=== PATIENT | male | born 1945 | race Caucasian/White ===

== ENCOUNTER 2019-05-18 09:03 | Inpatient (IN) | payer BC, MEDICARE, OTHER ==
[~2019-05-18] VITALS: Ht 177.8 cm; Wt 112.7 kg
--- NOTE | 2019-05-18 09:23 | NUR ---
IS AT THE BEDSIDE FOR CONSULT. THIS PT WAS TRANSFERRED FROM THE .A. FOR ADMISSION FOR A UTI.
[2019-05-18] MEDS ORDERED: SODIUM CHLORIDE 0.9% 1,000ML IVBOLUS ONE (09:30)
[2019-05-18] MEDS ORDERED: BUPR100T11 PO ×2 (09:56)
[2019-05-18] MEDS ORDERED: BUSP10TA PO ×4 (09:56→10:16)
--- NOTE | 2019-05-18 09:58 | NUR ---
HOSPITALIST IS AT THE BEDSIDE TO CONSULT. PHLEBOTOMY IS AT THE BEDSIDE FOR BLOOD SAMPLING
[2019-05-18] MEDS ORDERED: FINA5TAB4 PO (10:18)
[2019-05-18] MEDS ORDERED: METO25TA2 PO (10:19)
[2019-05-18 10:20] LABS: BASOPHILS # (AUTO) 0.03 x10^3/uL (0-0.1); BASOPHILS % (AUTO) 0 % (0-1); EOSINOPHILS # (AUTO) 0.01 x10^3/uL (0-0.4); EOSINOPHILS % (AUTO) 0 % (1-7); LYMPHOCYTES # (AUTO) 0.62 x10^3/uL (1-3.4); LYMPHOCYTES % (AUTO) 6 % (22-44); MD NO; MEAN CORPUSCULAR HEMOGLOBIN 27.4 pg (27.5-34.5); MEAN CORPUSCULAR HGB CONC 31.6 g/dL (33.2-36.2); MEAN CORPUSCULAR VOLUME 86.9 fL (81-97); MEAN PLATELET VOLUME 7.6 fL (7.4-10.4); MONOCYTES # (AUTO) 0.66 x10^3/uL (0.2-0.8); MONOCYTES % (AUTO) 7 % (2-9); NEUTROPHILS # (AUTO) 8.59 x10^3/uL (1.8-6.8); NEUTROPHILS % (AUTO) 87 % (42-75); PLATELET COUNT 224 x10^3/uL (130-400); RED CELL DISTRIBUTION WIDTH 14.3 % (9.4-14.8)
[2019-05-18] MEDS ORDERED: TAMS-11 PO (10:20)
[2019-05-18] MEDS ORDERED: SIMV80TA18 PO (10:21)
[2019-05-18] MEDS ORDERED: DORZ10DR26 EACHEYE (10:23)
[2019-05-18] MEDS ORDERED: TIMO5DRO33 EACHEYE (10:24)
[2019-05-18] MEDS ORDERED: MELA10CA PO (10:26)
[2019-05-18] MEDS ORDERED: LATA7.5D EACHEYE (10:26)
[2019-05-18] MEDS ORDERED: CHOL10003 PO (10:27)
[2019-05-18] MEDS ORDERED: TRAZ50TA66 PO (10:27)
[2019-05-18] MEDS ORDERED: ASPI-496 PO (10:28)
[2019-05-18] MEDS ORDERED: NAPR-685 PO (10:29)
[2019-05-18] MEDS ORDERED: GABA-827 PO (10:30)
[2019-05-18] MEDS ORDERED: CEFTRIAXONE PMX 1GM/50ML 50 ML IV SCH (10:30)
--- NOTE | 2019-05-18 10:31 | NUR ---
VERBAL SBAR EXCHANGED Yodit GALEAS ([facility]) ON THE FLOOR FOR ADMISSION. WE WILL BEGIN TO PREPARE FOR TRANSPORT AT THIS TIME.
[2019-05-18 10:35] LABS: ALBUMIN 3.1 g/dL (3.4-5.0); ANION GAP 7 mmol/L (5-15); CALCIUM 7.9 mg/dL (8.5-10.1); CHLORIDE 112 mmol/L (98-107); CREATININE 1.03 mg/dL (0.7-1.3)
--- NOTE | 2019-05-18 10:51 | NUR ---
SPOKE W/ DAYSI FROM [facility] WHO DENIES TRANSFER AT THIS TIME.
[2019-05-18 11:01] VITALS: BP 103/67
[2019-05-18] MEDS ORDERED: ACETAMINOPHEN 325 MG TABLET PO PRN (11:30)
[2019-05-18 11:36] LABS: MICROSCOPIC AUTO
[2019-05-18 11:37] LABS: CULTURE INDICATED? YES
[2019-05-18] MEDS: SODIUM CHLORIDE 0.9% 1,000 ML IV SCH ×2 (12:16→18:29)
[2019-05-18] MEDS: HEPARIN 5,000 UNITS/ML, 1ML SQ SCH ×2 (12:26→22:00)
[2019-05-18] MEDS ORDERED: BUSPIRONE 5 MG TABLET ONE (12:50)
[2019-05-18] MEDS: BUPROPION 100 MG TABLET PO SCH (12:52)
[2019-05-18] MEDS: BUSPIRONE 10 MG TABLET PO SCH (12:52)
[2019-05-18 15:50] VITALS: BP 148/86
[2019-05-18 19:06] VITALS: BP 120/72
[2019-05-18] MEDS ORDERED: DORZOLAMIDE OPHTH 2%, 10ML EACHEYE SCH (21:00)
[2019-05-18] MEDS: LATANOPROST OPHTH 0.005%, 2.5ML HOMEOPHTH SCH (21:00)
[2019-05-18] MEDS ORDERED: TIMOLOL OPHTH 0.5%, 5ML EACHEYE SCH (21:00)
[2019-05-18 21:45] VITALS: BP_SYST 127; BP_SYST 131; BP_SYST 143; BP_DIAS 61; BP_DIAS 75; BP_DIAS 78
[2019-05-18] MEDS: GABAPENTIN 400 MG CAPSULE PO SCH (21:59)
[2019-05-18] MEDS: FINASTERIDE 5 MG TABLET PO SCH (21:59)
[2019-05-18] MEDS: CHOLECALCIFEROL 1,000 UNIT TABLET PO SCH (21:59)
[2019-05-18] MEDS: ATORVASTATIN 40 MG TABLET PO SCH (21:59)
[2019-05-18] MEDS: ASPIRIN 81 MG TABLET EC PO SCH (21:59)
[2019-05-18] MEDS: METOPROLOL SUCCINATE 25 MG TAB.ER.24H PO SCH (22:00)
[2019-05-18] MEDS: TRAZODONE 50MG TABLET PO SCH (22:00)
[2019-05-18] MEDS: TAMSULOSIN 0.4 MG CAP.ER.24H PO SCH (22:00)
[2019-05-19] MEDS: SODIUM CHLORIDE 0.9% 1,000 ML IV SCH ×4 (00:01→21:37)
[2019-05-19 02:03] VITALS: BP 121/74
[2019-05-19] MEDS: HEPARIN 5,000 UNITS/ML, 1ML SQ SCH ×3 (05:01→21:35)
[2019-05-19] MEDS: CEFTRIAXONE PMX 1GM/50ML 50 ML IV SCH (05:01)
[2019-05-19 06:06] LABS: BASOPHILS # (AUTO) 0.02 x10^3/uL (0-0.1); BASOPHILS % (AUTO) 0 % (0-1); EOSINOPHILS # (AUTO) 0.05 x10^3/uL (0-0.4); EOSINOPHILS % (AUTO) 1 % (1-7); LYMPHOCYTES # (AUTO) 1.09 x10^3/uL (1-3.4); LYMPHOCYTES % (AUTO) 17 % (22-44); MD NO; MEAN CORPUSCULAR HEMOGLOBIN 28.2 pg (27.5-34.5); MEAN CORPUSCULAR VOLUME 88.1 fL (81-97); MONOCYTES # (AUTO) 0.52 x10^3/uL (0.2-0.8); MONOCYTES % (AUTO) 8 % (2-9); NEUTROPHILS # (AUTO) 4.75 x10^3/uL (1.8-6.8); NEUTROPHILS % (AUTO) 74 % (42-75); PLATELET COUNT 179 x10^3/uL (130-400); RED CELL DISTRIBUTION WIDTH 14.6 % (9.4-14.8)
[2019-05-19 06:10] LABS: ALANINE AMINOTRANSFERASE 13 U/L (12-78); ALBUMIN 2.9 g/dL (3.4-5.0); ANION GAP 7 mmol/L (5-15); CHLORIDE 113 mmol/L (98-107); CREATININE 0.87 mg/dL (0.7-1.3)
[2019-05-19 06:12] LABS: ALKALINE PHOSPHATASE 54 U/L (45-117); TOTAL PROTEIN 5.8 g/dL (6.4-8.2)
[2019-05-19 08:02] VITALS: BP 129/74
[2019-05-19] MEDS: GABAPENTIN 400 MG CAPSULE PO SCH ×2 (08:46→21:37)
[2019-05-19] MEDS: BUPROPION 100 MG TABLET PO SCH ×2 (08:50→12:12)
[2019-05-19] MEDS: BUSPIRONE 10 MG TABLET PO SCH ×2 (08:51→12:12)
[2019-05-19 15:59] VITALS: BP 153/85
[2019-05-19 19:52] VITALS: BP 148/62
[2019-05-19] MEDS: LATANOPROST OPHTH 0.005%, 2.5ML HOMEOPHTH SCH (21:00)
[2019-05-19] MEDS: ATORVASTATIN 40 MG TABLET PO SCH (21:34)
[2019-05-19] MEDS: ASPIRIN 81 MG TABLET EC PO SCH (21:34)
[2019-05-19] MEDS: TAMSULOSIN 0.4 MG CAP.ER.24H PO SCH (21:34)
[2019-05-19] MEDS: CHOLECALCIFEROL 1,000 UNIT TABLET PO SCH (21:35)
[2019-05-19] MEDS: METOPROLOL SUCCINATE 25 MG TAB.ER.24H PO SCH (21:35)
[2019-05-19] MEDS: FINASTERIDE 5 MG TABLET PO SCH (21:36)
[2019-05-19] MEDS: TRAZODONE 50MG TABLET PO SCH (21:40)
[2019-05-20 01:35] VITALS: BP 133/71
[2019-05-20 04:32] LABS: BASOPHILS # (AUTO) 0.03 x10^3/uL (0-0.1); BASOPHILS % (AUTO) 0 % (0-1); EOSINOPHILS # (AUTO) 0.11 x10^3/uL (0-0.4); EOSINOPHILS % (AUTO) 1 % (1-7); LYMPHOCYTES # (AUTO) 1.37 x10^3/uL (1-3.4); LYMPHOCYTES % (AUTO) 16 % (22-44); MD NO; MEAN CORPUSCULAR HEMOGLOBIN 28.2 pg (27.5-34.5); MEAN CORPUSCULAR HGB CONC 31.8 g/dL (33.2-36.2); MEAN CORPUSCULAR VOLUME 88.5 fL (81-97); MEAN PLATELET VOLUME 8.2 fL (7.4-10.4); MONOCYTES # (AUTO) 0.72 x10^3/uL (0.2-0.8); MONOCYTES % (AUTO) 8 % (2-9); NEUTROPHILS # (AUTO) 6.37 x10^3/uL (1.8-6.8); NEUTROPHILS % (AUTO) 74 % (42-75); PLATELET COUNT 183 x10^3/uL (130-400); RED BLOOD COUNT 4.82 x10^6/uL (4.38-5.82); RED CELL DISTRIBUTION WIDTH 14.6 % (9.4-14.8)
[2019-05-20 04:38] LABS: ALBUMIN 3.1 g/dL (3.4-5.0); ANION GAP 5 mmol/L (5-15); CALCIUM 8.3 mg/dL (8.5-10.1); CHLORIDE 111 mmol/L (98-107)
[2019-05-20 04:41] LABS: ALANINE AMINOTRANSFERASE 13 U/L (12-78); ALKALINE PHOSPHATASE 59 U/L (45-117); CREATININE 0.95 mg/dL (0.7-1.3); TOTAL PROTEIN 6.5 g/dL (6.4-8.2)
[2019-05-20] MEDS: SODIUM CHLORIDE 0.9% 1,000 ML IV SCH ×2 (06:00→12:20)
[2019-05-20] MEDS: CEFTRIAXONE PMX 1GM/50ML 50 ML IV SCH (06:05)
[2019-05-20] MEDS: HEPARIN 5,000 UNITS/ML, 1ML SQ SCH ×2 (06:05→14:00)
[2019-05-20 08:20] VITALS: BP 108/71
[2019-05-20] MEDS: BUSPIRONE 10 MG TABLET PO SCH ×2 (10:14→12:00)
[2019-05-20] MEDS: BUPROPION 100 MG TABLET PO SCH ×2 (10:15→12:00)
[2019-05-20] MEDS: GABAPENTIN 400 MG CAPSULE PO SCH (10:15)
[2019-05-20] MEDS ORDERED: CIPR250T27 PO (14:16)
[2019-05-20] MEDS ORDERED: ATOR40TA78 PO (14:16)
== END 2019-05-20 16:25 | disposition home or self-care (01) | DRG 689 ==
LOC: ED 10:11 → EDIP 10:12 → ED 10:40 → 4WST 10:57
PROVIDERS: ADMIT Internal Medicine; ATTEND Internal Medicine
DX: N39.0 Urinary tract infection, site not specified (principal); G93.41 Metabolic encephalopathy; E66.9 Obesity, unspecified; Z68.35 Body mass index [BMI] 35.0-35.9, adult; E78.5 Hyperlipidemia, unspecified; F43.10 Post-traumatic stress disorder, unspecified; H40.9 Unspecified glaucoma; H91.90 Unspecified hearing loss, unspecified ear; M19.90 Unspecified osteoarthritis, unspecified site; Z88.5 Allergy status to narcotic agent; N40.0 Benign prostatic hyperplasia without lower urinary tract symptoms; Z16.29 Resistance to other single specified antibiotic; Z79.82 Long term (current) use of aspirin; Z79.899 Other long term (current) drug therapy; Z85.528 Personal history of other malignant neoplasm of kidney; Z87.891 Personal history of nicotine dependence; Z90.5 Acquired absence of kidney
CPT/HCPCS: 36415; 80048; 80053; 81001; 82040; 83605; 83735; 84100; 84145; 84153; 85025; 87040; 87077; 87086; 87186; G0378; J0696; J1644; J7030